=== PATIENT | male | born 1955 | race Caucasian/White ===

== ENCOUNTER 2017-04-03 17:22 | Observation (INO) | payer MEDICARE ==
--- NOTE | 2017-04-03 17:50 | ER Document Report ---
ED Medical Screen (RME) - General Chief Complaint: Leg Swelling Stated Complaint: LEG/FOOT PAIN Time Seen by Provider: 04/03/17 17:48 Notes: Patient complains of severe pain in the feet and legs with swelling. He is also been short of breath and chest pain and shoulder pain. TRAVEL OUTSIDE OF THE [place] IN LAST 30 DAYS: No - Related Data Allergies/Adverse Reactions: No Known Allergies Allergy (Verified 04/03/17 17:22) Past Medical History - Past Medical History Cardiac Medical History: Reports: Hx Atrial Fibrillation, Hx Heart Attack, Hx Hypertension Pulmonary Medical History: Reports: Hx COPD Denies: Hx Tuberculosis Endocrine Medical History: Reports: Hx Diabetes Mellitus Type 2 Psychiatric Medical History: Denies: Hx Depression Past Surgical History: Reports: Hx Appendectomy, Hx Cardiac Catheterization - Immunizations Hx Diphtheria, Pertussis, Tetanus Vaccination: Yes Physical Exam - Vital signs Vitals: Temp Pulse Resp BP Pulse Ox 98.5 F 89 18 143/88 H 96 04/03/17 17:40 04/03/17 17:40 04/03/17 17:40 04/03/17 17:40 04/03/17 17:40 Course - Vital Signs Vital signs: Temp Pulse Resp BP Pulse Ox 98.5 F 89 18 143/88 H 96 04/03/17 17:40 04/03/17 17:40 04/03/17 17:40 04/03/17 17:40 04/03/17 17:40
[2017-04-03 18:33] LABS: ABSOLUTE BASOPHILS # (AUTO) 0.1 10^3/uL (0.0-0.2); ABSOLUTE EOSINOPHILS # (AUTO) 0.2 10^3/uL (0.0-0.6); ABSOLUTE MONOCYTES (AUTO) 0.8 10^3/uL (0.1-1.4); BASOPHILS % (AUTO) 1.1 % (0-2); EOSINOPHILS % (AUTO) 3.4 % (0-6); HEMATOCRIT 50.8 % (37.9-51.0); HEMOGLOBIN 17.3 g/dL (13.5-17.0); LYMPHOCYTES % (AUTO) 32.5 % (13-45); MEAN CORPUSCULAR HEMOGLOBIN 28.9 pg (27.0-33.4); MEAN CORPUSCULAR VOLUME 85 fl (80-97); MONOCYTES % (AUTO) 13.9 % (3-13); PLATELET COUNT 178 10^3/uL (150-450); RED BLOOD COUNT 5.98 10^6/uL (4.35-5.55); RED CELL DISTRIBUTION WIDTH 14.1 % (11.5-14.0); SEGMENTED NEUTROPHILS % (AUTO) 49.1 % (42-78); TOTAL CELLS COUNTED % (AUTO) 100 %; WHITE BLOOD COUNT 6.1 10^3/uL (4.0-10.5)
--- NOTE | 2017-04-03 18:36 | RADIOLOGY REPORT (SQ) ---
EXAM DESCRIPTION: CHEST SINGLE VIEW COMPLETED DATE/TIME: 04/03/2017 6:12 pm REASON FOR STUDY: sob COMPARISON: None. EXAM PARAMETERS: NUMBER OF VIEWS: One view. TECHNIQUE: Single frontal radiographic view of the chest acquired. RADIATION DOSE: NA LIMITATIONS: None. FINDINGS: LUNGS AND PLEURA: No opacities, masses or pneumothorax. No pleural effusion. Minimal line ar density is again identified in the left lung base which could represent subsegmental atelectasis o r scarring MEDIASTINUM AND HILAR STRUCTURES: No masses. Contour normal. HEART AND VASCULAR STRUCTURES: Heart normal in size. Normal vasculature. BONES: Degenerative changes are again identified in the thoracic spine HARDWARE: None in the chest. OTHER: No other significant finding. IMPRESSION: No significant interval change. No acute findings. Other findings as noted above TECHNICAL DOCUMENTATION: JOB ID: [id number] [employer]- All Rights Reserved
[2017-04-03 18:43] LABS: ALANINE AMINOTRANSFERASE 65 U/L (21-72); ALBUMIN 4.4 g/dL (3.5-5.0); ALKALINE PHOSPHATASE 66 U/L (38-126); ANION GAP 10 (5-19); ASPARTATE AMINO TRANSFERASE 40 U/L (17-59); BILIRUBIN,DIRECT 0.4 mg/dL (0.0-0.4); BILIRUBIN,TOTAL 0.5 mg/dL (0.2-1.3); BLOOD UREA NITROGEN 16 mg/dL (7-20); CALCIUM 9.9 mg/dL (8.4-10.2); CARBON DIOXIDE 28 mmol/L (22-30); CHLORIDE 104 mmol/L (98-107); GLUCOSE 114 mg/dL (75-110); SODIUM 141.6 mmol/L (137-145); TOTAL PROTEIN 7.2 g/dL (6.3-8.2)
[2017-04-03 18:55] LABS: NT PRO BNP 389 pg/mL (5-900)
[2017-04-03 18:57] LABS: TROPONIN I < 0.012 ng/mL
--- NOTE | 2017-04-03 19:54 | ER Document Report ---
ED General - General Chief Complaint: Leg Swelling Stated Complaint: LEG/FOOT PAIN Time Seen by Provider: 04/03/17 17:48 Notes: 89-year-old male to the emergency department complaining of not feeling well. States that he hurts all over. States that the last time he felt this way he had a heart attack. Has noticed that he has some lower extremity edema as well. Does have a history of atrial fibrillation. Denies any chest pain at this time. Swelling seems to be getting worse in his legs and noticed some discoloration of his bilateral feet. TRAVEL OUTSIDE OF THE [place] IN LAST 30 DAYS: No - HPI Onset: Yesterday Onset/Duration: Gradual, Worse Severity: Moderate Pain Level: 3 Associated symptoms: Body/muscle aches - Related Data Allergies/Adverse Reactions: No Known Allergies Allergy (Verified 04/03/17 17:22) Past Medical History - General Information source: Patient - Social History Smoking Status: Current Every Day Smoker Chew tobacco use (# tins/day): No Frequency of alcohol use: None Drug Abuse: None Lives with: Spouse/Significant other Family History: Reviewed & Not Pertinent Patient has suicidal ideation: No Patient has homicidal ideation: No - Past Medical History Cardiac Medical History: Reports: Hx Atrial Fibrillation, Hx Heart Attack, Hx Hypertension Pulmonary Medical History: Reports: Hx COPD Denies: Hx Tuberculosis Endocrine Medical History: Reports: Hx Diabetes Mellitus Type 2 Renal/ Medical History: Denies: Hx Peritoneal Dialysis Psychiatric Medical History: Denies: Hx Depression Past Surgical History: Reports: Hx Appendectomy, Hx Cardiac Catheterization - Immunizations Hx Diphtheria, Pertussis, Tetanus Vaccination: Yes Hx Pneumococcal Vaccination: 07/22/12 Review of Systems - Review of Systems Constitutional: denies: Chills, Diaphoresis, Fever, Malaise, Weakness EENT: denies: Eye discharge, Blurred vision, Double vision, Throat swelling Cardiovascular: Palpitations, Heart racing, Dyspnea, Edema. denies: Chest pain , Syncope, Dizziness, Lightheaded Respiratory: denies: Cough, Hurts to breathe, Short of breath, Wheezing Gastrointestinal: denies: Abdominal pain, Diarrhea, Nausea, Vomiting Genitourinary: denies: Dysuria, Discharge, Flank pain, Urgency, Retention Musculoskeletal: denies: Back pain, Joint pain, Muscle pain, Muscle stiffness, Neck pain Skin: Lesions, Rash. denies: Change in color Hematologic/Lymphatic: Easy bruising. denies: Anemia, Blood clots, Easy bleeding Neurological/Psychological: denies: Confusion, Weakness, Numbness Physical Exam - Vital signs Vitals: Temp Pulse Resp BP Pulse Ox 98.5 F 89 18 143/88 H 96 04/03/17 17:40 04/03/17 17:40 04/03/17 17:40 04/03/17 17:40 04/03/17 17:40 Interpretation: Tachycardic - General General appearance: Appears well, Alert - HEENT Head: Normocephalic, Atraumatic Eyes: Normal Pupils: PERRL - Respiratory Respiratory status: No respiratory distress Chest status: Nontender Breath sounds: Normal Chest palpation: Normal - Cardiovascular Rhythm: Irregularly irregular, Tachycardia Heart sounds: Normal auscultation Murmur: No - Abdominal Inspection: Normal Distension: No distension Bowel sounds: Normal Tenderness: Nontender Organomegaly: No organomegaly - Back Back: Normal, Nontender - Extremities General upper extremity: Normal inspection, Nontender, Normal color, Normal ROM , Normal temperature General lower extremity: Normal inspection, Nontender, Edema, Normal color, Normal ROM, Normal temperature, Normal weight bearing. No: Nabor's sign - Neurological Neuro grossly intact: Yes Cognition: Normal Orientation: AAOx4 [place] Coma Scale Eye Opening: Spontaneous [place] Coma Scale Verbal: Oriented [place] Coma Scale Motor: Obeys Commands [place] Coma Scale Total: 15 Speech: Normal Motor strength normal: LUE, RUE, LLE, RLE Sensory: Normal - Psychological Associated symptoms: Normal affect, Normal mood - Skin Skin Temperature: Warm Skin Moisture: Dry Skin Color: Normal Course - Re-evaluation Re-evalutation: 04/03/17 20:50 Patient has atrial fibrillation with a rapid ventricular response with a heart rate of 121. Will need to get his rate controlled. This could be causing his issues. Will consult with hospitalist for admission at this time. 04/03/17 20:50 Chest X-Ray 04/03/17 17:50 IMPRESSION: No significant interval change. No acute findings. Other findings as noted above Laboratory 04/03/17 04/03/17 04/03/17 18:05 18:05 18:05 WBC 6.1 RBC 5.98 H Hgb 17.3 H Hct 50.8 MCV 85 MCH 28.9 MCHC 34.0 RDW 14.1 H Plt Count 178 Seg Neutrophils % 49.1 Lymphocytes % 32.5 Monocytes % 13.9 H Eosinophils % 3.4 Basophils % 1.1 Absolute Neutrophils 3.0 Absolute Lymphocytes 2.0 Absolute Monocytes 0.8 Absolute Eosinophils 0.2 Absolute Basophils 0.1 Sodium 141.6 Potassium 5.0 Chloride 104 Carbon Dioxide 28 Anion Gap 10 BUN 16 Creatinine 1.09 Est GFR ( Amer) > 60 Est GFR (Non-Af Amer) > 60 Glucose 114 H Calcium 9.9 Total Bilirubin 0.5 Direct Bilirubin 0.4 Neonat Total Bilirubin Not Reportable Neonat Direct Bilirubin Not Reportable Neonat Indirect Bili Not Reportable AST 40 ALT 65 Alkaline Phosphatase 66 Troponin I < 0.012 NT-Pro-B Natriuret Pep 389 Total Protein 7.2 Albumin 4.4 Urine Color Urine Appearance Urine pH Ur Specific [place] Urine Protein Urine Glucose (UA) Urine Ketones Urine Blood Urine Nitrite Urine Bilirubin Urine Urobilinogen Ur Leukocyte Esterase Urine WBC (Auto) Urine RBC (Auto) U Hyaline Cast (Auto) Urine Bacteria (Auto) Squamous Epi Cells Auto Urine Mucus (Auto) Urine Ascorbic Acid 04/03/17 19:45 WBC RBC Hgb Hct MCV MCH MCHC RDW Plt Count Seg Neutrophils % Lymphocytes % Monocytes % Eosinophils % Basophils % Absolute Neutrophils Absolute Lymphocytes Absolute Monocytes Absolute Eosinophils Absolute Basophils Sodium Potassium Chloride Carbon Dioxide Anion Gap BUN Creatinine Est GFR ( Amer) Est GFR (Non-Af Amer) Glucose Calcium Total Bilirubin Direct Bilirubin Neonat Total Bilirubin Neonat Direct Bilirubin Neonat Indirect Bili AST ALT Alkaline Phosphatase Troponin I NT-Pro-B Natriuret Pep Total Protein Albumin Urine Color YELLOW Urine Appearance SLIGHTLY-CLOUDY Urine pH 5.0 Ur Specific [place] 1.026 Urine Protein NEGATIVE Urine Glucose (UA) NEGATIVE Urine Ketones NEGATIVE Urine Blood NEGATIVE Urine Nitrite NEGATIVE Urine Bilirubin NEGATIVE Urine Urobilinogen NEGATIVE Ur Leukocyte Esterase NEGATIVE Urine WBC (Auto) 1 Urine RBC (Auto) 1 U Hyaline Cast (Auto) 1 Urine Bacteria (Auto) TRACE Squamous Epi Cells Auto <1 Urine Mucus (Auto) MOD Urine Ascorbic Acid NEGATIVE - Vital Signs Vital signs: Temp Pulse Resp BP Pulse Ox 98.5 F 89 26 H 143/88 H 95 04/03/17 17:40 04/03/17 17:40 04/03/17 19:54 04/03/17 17:40 04/03/17 19:54 - Laboratory Result Diagrams: 04/03/17 18:05 04/03/17 18:05 Laboratory results interpreted by me: 04/03/17 04/03/17 18:05 18:05 RBC 5.98 H Hgb 17.3 H RDW 14.1 H Monocytes % 13.9 H Glucose 114 H - EKG Interpretation by In EKG shows normal: Intervals, QRS Complexes, ST-T Waves Rate: Tachycardia Rhythm: A.Fib Discharge - Discharge Clinical Impression: Atrial fibrillation with rapid ventricular response Disposition: ADMITTED OBSERVATION Admitting Provider: Hospitalist - Dr. Del Toro Unit Admitted: Telemetry
[2017-04-03 20:07] LABS: APPEARANCE,URINE SLIGHTLY-CLOUDY; BILIRUBIN,URINE NEGATIVE (NEGATIVE); COLOR,URINE YELLOW; GLUCOSE, URINE NEGATIVE (NEGATIVE); KETONES,URINE NEGATIVE (NEGATIVE); LEUKOCYTE ESTERASE,URINE NEGATIVE (NEGATIVE); NITRITE,URINE NEGATIVE (NEGATIVE); PROTEIN,URINE NEGATIVE (NEGATIVE); URINE SPECIFIC GRAVITY 1.026; UROBILINOGEN,URINE NEGATIVE mg/dL (<2.0)
[2017-04-03] MEDS ORDERED: METOPROLOL TARTRATE 25 MG TABLET PO ONE (20:51)
[2017-04-03 21:29] LABS: INTERNATIONAL RATION (INR) 0.96; PROTHROMBIN TIME 13.4 SEC (11.4-15.4)
[2017-04-03 21:30] LABS: PARTIAL THROMBOPLASTIN TIME 34.2 SEC (23.5-35.8)
[2017-04-03] MEDS ORDERED: ZOLPIDEM TARTRATE 5 MG TABLET PO PRN (21:49)
[2017-04-03] MEDS ORDERED: DEXTROSE 50%-WATER 25 GM/50 ML DISP.SYRIN IV PRN ×2 (21:49)
[2017-04-03] MEDS ORDERED: GLUCAGON,HUMAN RECOMB 1 MG INJ IM PRN (21:49)
[2017-04-03] MEDS ORDERED: ACETAMINOPHEN 325 MG TABLET PO PRN (21:49)
[2017-04-03] MEDS ORDERED: INSULIN REG, HUMAN 100 UNIT/ML 3 ML VIAL (PYX) SUBCUT PRN (21:49)
[2017-04-03] MEDS ORDERED: ALBUTEROL SULFATE 0.083% NEB 2.5 MG/3 ML AMPUL NEB PRN (21:49)
[2017-04-03] MEDS ORDERED: DEXTROSE 40% GEL 15 GM TUBE PO PRN ×2 (21:49)
[2017-04-03] MEDS ORDERED: ONDANSETRON HCL INJ/PF 4 MG/2 ML SDV IV PRN (21:49)
[2017-04-03] MEDS: APIXABAN 5 MG TABLET PO SCH (22:02)
[2017-04-03] MEDS: ATORVASTATIN CALCIUM 40 MG TABLET PO SCH (22:03)
[2017-04-03] MEDS: GABAPENTIN 300 MG CAPSULE PO SCH (22:03)
[2017-04-03] MEDS: METOPROLOL TARTRATE 25 MG TABLET PO SCH (22:03)
[2017-04-03] MEDS: DILTIAZEM HCL 90 MG TABLET PO SCH (22:08)
--- NOTE | 2017-04-03 22:23 | PDOC H&P ---
History of Present Illness Admission Date/PCP: 04/03/17 21:04 KEDAR SINGH MD Patient complains of: Generalized aches and pains History of Present Illness: KARLA GARNICA is a 61 year old male with long-standing history of diabetic neuropathy. His relates that he snores, stops breathing in his sleep, and falls asleep during the daytime. For the last several days in addition he has been having diffuse aches and pains. He has developed rubor of the feet and edema as well. He presents to the emergency room with rapid atrial fibrillation which has responded to additional beta blockers. He is admitted to our service for further management of his peripheral vascular disease. Past Medical History Cardiac Medical History: Reports: Atrial Fibrillation, Myocardial Infarction, Hypertension Pulmonary Medical History: Reports: Chronic Obstructive Pulmonary Disease (COPD) Denies: Tuberculosis Endocrine Medical History: Reports: Diabetes Mellitus Type 2, Obesity Psychiatric Medical History: Denies: Depression Past Surgical History Past Surgical History: Reports: Appendectomy, Cardiac Catheterization Social History Information Source: Patient Lives with: Spouse/Significant other Smoking Status: Current Every Day Smoker Cigarettes Packs Per Day: 0.5 Frequency of Alcohol Use: Social Hx Recreational Drug Use: No Drugs: None Hx Prescription Drug Abuse: No - Advance Directive Resuscitation Status: Full Code Family History Family History: Reviewed & Not Pertinent Parental Family History Reviewed: Yes Children Family History Reviewed: Yes Sibling(s) Family History Reviewed.: Yes Medication/Allergy Home Medications: Apixaban [Eliquis 5 mg Tablet] 5 mg PO Q12 04/03/17 Atorvastatin Calcium [Lipitor 40 mg Tablet] 40 mg PO QHS 04/03/17 Cyanocobalamin (Vitamin B-12) [Vitamin B-12 SL 2500 mcg Tablet] 2,500 mcg SL DAILY 04/03/17 Diltiazem HCl [Cardizem 90 mg Tablet] 90 mg PO Q8 04/03/17 Gabapentin [Neurontin 300 mg Capsule] 300 mg PO Q8 04/03/17 Metformin HCl [Metformin HCl ER] 2,000 mg PO QPM 04/03/17 Metoprolol Tartrate [Lopressor 25 mg Tablet] 25 mg PO Q8 04/03/17 Allergies/Adverse Reactions: No Known Allergies Allergy (Verified 04/03/17 17:22) Review of Systems Constitutional: PRESENT: fatigue. ABSENT: fever(s), weakness Eyes: ABSENT: visual disturbances Ears: ABSENT: hearing changes Nose, Mouth, and Throat: ABSENT: mouth pain, sore throat Cardiovascular: PRESENT: edema. ABSENT: chest pain, dyspnea on exertion, palpitations Respiratory: ABSENT: cough, dyspnea, hemoptysis Gastrointestinal: PRESENT: abdominal pain. ABSENT: constipation, diarrhea, heartburn, nausea, vomiting Genitourinary: ABSENT: difficulty urinating, dysuria, hematuria Musculoskeletal: PRESENT: back pain. ABSENT: joint swelling Integumentary: PRESENT: erythema, rash. ABSENT: diaphoresis Neurological: PRESENT: numbness, paresthesias Psychiatric: ABSENT: depression, suicidal ideation Endocrine: PRESENT: other - diabetes Physical Exam Vital Signs: Temp Pulse Resp BP Pulse Ox 98.2 F 89 21 H 130/111 H 94 04/03/17 21:54 04/03/17 17:40 04/03/17 21:34 04/03/17 21:35 04/03/17 21:35 General appearance: PRESENT: no acute distress, cooperative, obese, well- developed Head exam: PRESENT: atraumatic, normocephalic Eye exam: PRESENT: EOMI, nystagmus, PERRLA Ear exam: PRESENT: normal external ear exam Neck exam: ABSENT: carotid bruit, JVD, meningismus Respiratory exam: PRESENT: clear to auscultation petros, symmetrical, unlabored. ABSENT: accessory muscle use Cardiovascular exam: PRESENT: irregular rhythm. ABSENT: diastolic murmur, rubs , systolic murmur Pulses: PRESENT: other - Decreased dorsalis pedis and absent posterior tibialis bilaterally Vascular exam: PRESENT: other - Poor capillary refill GI/Abdominal exam: PRESENT: normal bowel sounds, soft. ABSENT: guarding, organolmegaly Rectal exam: PRESENT: deferred Extremities exam: PRESENT: pedal edema Musculoskeletal exam: PRESENT: normal inspection Neurological exam: PRESENT: alert, awake, oriented to person, oriented to place , oriented to time, oriented to situation Psychiatric exam: PRESENT: appropriate affect, normal mood Skin exam: PRESENT: dry, intact, warm, other - Stasis dermatitis changes in both lower extremities. ABSENT: cyanosis, rash Results Laboratory Results: 04/03/17 04/03/17 04/03/17 18:05 18:05 18:05 WBC 6.1 RBC 5.98 H Hgb 17.3 H Plt Count 178 Monocytes % 13.9 H PT INR APTT Sodium 141.6 Potassium 5.0 Chloride 104 Carbon Dioxide 28 Anion Gap 10 BUN 16 Creatinine 1.09 Glucose 114 H Troponin I < 0.012 NT-Pro-B Natriuret Pep 389 Total Protein 7.2 Albumin 4.4 Urine Glucose (UA) Ur Leukocyte Esterase 04/03/17 04/03/17 18:05 19:45 WBC RBC Hgb Plt Count Monocytes % PT 13.4 INR 0.96 APTT 34.2 Sodium Potassium Chloride Carbon Dioxide Anion Gap BUN Creatinine Glucose Troponin I NT-Pro-B Natriuret Pep Total Protein Albumin Urine Glucose (UA) NEGATIVE Ur Leukocyte Esterase NEGATIVE EKG Comments: Atrial fibrillation Impressions: Chest X-Ray 04/03/17 17:50 IMPRESSION: No significant interval change. No acute findings. Other findings as noted above Assessment & Plan - Diagnosis (1) Flu syndrome Is this a current diagnosis for this admission?: Yes (2) PVD (pulmonary valve disease) Is this a current diagnosis for this admission?: Yes (3) Neuropathy associated with endocrine disorder Is this a current diagnosis for this admission?: Yes (4) Tobacco abuse Is this a current diagnosis for this admission?: Yes (5) Tobacco abuse counseling Is this a current diagnosis for this admission?: Yes (6) COPD (chronic obstructive pulmonary disease) with emphysema Qualifiers: Emphysema type: unspecified Qualified Code(s): J43.9 - Emphysema, unspecified Is this a current diagnosis for this admission?: Yes (7) HTN (hypertension) Qualifiers: Hypertension type: essential hypertension Qualified Code(s): I10 - Essential (primary) hypertension Is this a current diagnosis for this admission?: Yes (8) Atrial fibrillation with rapid ventricular response Is this a current diagnosis for this admission?: Yes (9) DM2 (diabetes mellitus, type 2) Qualifiers: Diabetes mellitus complication status: with circulatory complication Diabetes mellitus complication detail: with peripheral angiopathy without gangrene Diabetes mellitus exterminator termite insulin use: without exterminator termite use Qualified Code(s): E11.51 - Type 2 diabetes mellitus with diabetic peripheral angiopathy without gangrene Is this a current diagnosis for this admission?: Yes - Time Time Spent: 30 to 50 Minutes - Plan Summary Plan Summary: Patient is exhibiting evidence of an acute viral infection. He has elevated monocytosis and myalgias. In addition he has probable sleep apnea and should have a sleep study following discharge. He has known diabetic neuropathy. And his exam is suggestive of peripheral vascular disease. His atrial fibrillation has been controlled with an increase in his home medication. We will request noninvasive vascular studies. He will have serial enzymes to rule out an acute event that precipitated his rapid ventricular response. He will not require DVT prophylaxis as he is on therapeutic anticoagulation. He has been encouraged to stop smoking. Patient will be admitted to observation status
[2017-04-03] MEDS ORDERED: DOCUSATE SODIUM 100 MG CAPSULE PO ONE (23:00)
[2017-04-03] MEDS: FAMOTIDINE 20 MG TABLET PO SCH (23:03)
[2017-04-03] MEDS: IPRATROPIUM/ALBUTEROL 0.5-2.5 MG/3 ML AMPUL NEB SCH (23:31)
[2017-04-04 00:30] LABS: CREATINE KINASE MB 1.58 ng/mL (<4.55)
[2017-04-04 00:39] LABS: TROPONIN I < 0.012 ng/mL
[2017-04-04 05:18] LABS: HEMATOCRIT 47.2 % (37.9-51.0); MEAN CORPUSCULAR VOLUME 85 fl (80-97); PLATELET COUNT 166 10^3/uL (150-450); RED BLOOD COUNT 5.54 10^6/uL (4.35-5.55); RED CELL DISTRIBUTION WIDTH 14.4 % (11.5-14.0); WHITE BLOOD COUNT 6.1 10^3/uL (4.0-10.5)
[2017-04-04] MEDS: GABAPENTIN 300 MG CAPSULE PO SCH ×3 (05:26→22:19)
[2017-04-04] MEDS: DILTIAZEM HCL 90 MG TABLET PO SCH ×3 (05:27→22:19)
[2017-04-04] MEDS: METOPROLOL TARTRATE 25 MG TABLET PO SCH (05:27)
[2017-04-04 05:51] LABS: ANION GAP 9 (5-19); BLOOD UREA NITROGEN 16 mg/dL (7-20); CALCIUM 9.6 mg/dL (8.4-10.2); CARBON DIOXIDE 27 mmol/L (22-30); CHLORIDE 106 mmol/L (98-107); CHOLESTEROL 103.27 mg/dL (0-200); CREATINE KINASE 96 U/L (55-170); GLUCOSE 120 mg/dL (75-110); POTASSIUM 4.6 mmol/L (3.6-5.0); SODIUM 142.1 mmol/L (137-145); TRIGLYCERIDES 324 mg/dL (<150)
[2017-04-04 06:02] LABS: DIRECT LDL 46 mg/dL (<100)
[2017-04-04 06:06] LABS: CREATINE KINASE MB 1.38 ng/mL (<4.55)
[2017-04-04 06:13] LABS: TROPONIN I < 0.012 ng/mL; VLDL CHOLESTEROL 64.8 mg/dL (10-31)
[2017-04-04] MEDS: IPRATROPIUM/ALBUTEROL 0.5-2.5 MG/3 ML AMPUL NEB SCH (09:19)
[2017-04-04] MEDS ORDERED: (PENDING PHARMACY ID) (Cyanocobalamin (Vitamin B-12) [Vitamin B-12 Sl 2500 Mcg Tablet] 2,5 SL SCH (10:00)
[2017-04-04] MEDS ORDERED: DOCUSATE SODIUM 100 MG CAPSULE PO SCH (10:00)
[2017-04-04] MEDS ORDERED: METOPROLOL SUCCINATE 50 MG TAB.SR.24H PO SCH (10:00)
[2017-04-04] MEDS ORDERED: CYANOCOBALAMIN (VITAMIN B-12) 1,000 MCG TABLET PO SCH (10:00)
--- NOTE | 2017-04-04 10:26 | RADIOLOGY REPORT (SQ) ---
EXAM DESCRIPTION: ARTERIAL LOWER EXTREM BILAT COMPLETED DATE/TIME: 04/04/2017 10:10 am REASON FOR STUDY: pvd COMPARISON: None. TECHNIQUE: Dynamic and static bee scale and color images acquired of the lower extremity arteries. Additional selected spectral images recorded. ABIs recorded. LIMITATIONS: None. FINDINGS: RIGHT LEG: ABIS: Normal, over 1.0. INFLOW ARTERIES: Normal, no obstruction evident. FEMORAL ARTERIES:Multiphasic waveforms. Normal, no velocity elevation to suggest focal stenosis. Norm al color Doppler evaluation. No aneurysm. POPLITEAL ARTERY:Multiphasic waveforms. Normal, no velocity elevation to suggest focal stenosis. Norm al color Doppler evaluation. No aneurysm. PATENT TIBIOPERONEAL TRUNK AND 3 VESSEL RUNOFF: Yes, normal vessels. TBI: Not performed. OTHER: No other significant finding. LEFT LEG: ABIS: Normal, over 1.0. INFLOW ARTERIES: Normal, no obstruction evident. FEMORAL ARTERIES:Multiphasic waveforms. Normal, no velocity elevation to suggest focal stenosis. Norm al color Doppler evaluation. No aneurysm. POPLITEAL ARTERY:Multiphasic waveforms. Normal, no velocity elevation to suggest focal stenosis. Norm al color Doppler evaluation. No aneurysm. PATENT TIBIOPERONEAL TRUNK AND 3 VESSEL RUNOFF: Yes, normal vessels. TBI: Not performed. OTHER: No other significant finding. IMPRESSION: NORMAL BILATERAL LOWER EXTREMITY ARTERIAL DOPPLER WITH ABIs. COMMENT: [facility] NORMAL: Greater than 1.0 MINIMAL DISEASE: 0.9 to 1.0 CLAUDICATION: 0.5 to 0.9 SEVERE ARTERIAL DISEASE: Less than 0.5 [facility] NORMAL: Greater than 1.0 (1.2 If Heavy Calcifications) NORMAL TO MILD ISCHEMIA: 0.8 to 1.0 MODERATE ISCHEMIA: 0.4 to 0.8 SEVERE ISCHEMIA: Less than 0.4 TECHNICAL DOCUMENTATION: JOB ID: [id number] [employer]- All Rights Reserved
[2017-04-04] MEDS: METFORMIN HCL 500 MG TABLET PO SCH ×2 (11:47→17:16)
[2017-04-04] MEDS: FAMOTIDINE 20 MG TABLET PO SCH ×2 (11:48→22:19)
[2017-04-04] MEDS: APIXABAN 5 MG TABLET PO SCH ×2 (11:49→22:19)
--- NOTE | 2017-04-04 12:00 | EKG REPORT ---
SEVERITY:- ABNORMAL ECG - ATRIAL FIBRILLATION, V-RATE 91-142 BORDERLINE PROLONGED QT INTERVAL : Confirmed by: Moriah Yung 04-Apr-2017 11:59:07
[2017-04-04 12:21] LABS: TROPONIN I < 0.012 ng/mL
--- NOTE | 2017-04-04 12:40 | RADIOLOGY REPORT (SQ) ---
EXAM DESCRIPTION: L SPINE WHOLE COMPLETED DATE/TIME: 04/04/2017 10:56 am REASON FOR STUDY: Lumbar back and hip pain COMPARISON: None. NUMBER OF VIEWS: Five views including obliques. TECHNIQUE: AP, lateral, oblique, and sacral radiographic images acquired of the lumbar spine. LIMITATIONS: None. FINDINGS: MINERALIZATION: Normal. SEGMENTATION: Normal. No transitional anatomy. ALIGNMENT: Normal. VERTEBRAE: Maintained height. No fracture or worrisome bone lesion. DISCS: There is decrease in the L4-L5 and to a lesser extent the L3-L4 disc space heights with associ ated osteophytic lipping. A large osteophyte is identified at the L2-L3 level on the left. POSTERIOR ELEMENTS: Pedicles and facets are intact. No pars defect or posterior arch defects. HARDWARE: None in the spine. PARASPINAL SOFT TISSUES: Normal. PELVIS: Intact as visualized. No fractures or worrisome bone lesions. SI joints intact. OTHER: No other significant finding. IMPRESSION: Degenerative changes as noted above TECHNICAL DOCUMENTATION: JOB ID: [id number] [employer]- All Rights Reserved
--- NOTE | 2017-04-04 12:59 | RADIOLOGY REPORT (SQ) ---
EXAM DESCRIPTION: PELVIS W/OBLIQUES COMPLETED DATE/TIME: 04/04/2017 10:56 am REASON FOR STUDY: Lumbar back and hip pain COMPARISON: None. NUMBER OF VIEWS: Two views TECHNIQUE: AP pelvis and additional oblique views of the pelvis and hips. LIMITATIONS: None. FINDINGS: MINERALIZATION: Normal. HIPS: No acute fracture or dislocation. Intramedullary calcific density is identified at the level o f the proximal femoral diaphysis on the right with the differential possibilities including a bone in farct or enchondroma or other chondroid neoplasm. If further workup is deemed clinically warranted I would recommend MRI PELVIS AND SACRUM: No acute fracture or dislocation. No worrisome bone lesions. PUBIS AND ISCHIUM: No acute fracture. LOWER LUMBAR SPINE: See results under lumbar spine series SOFT TISSUES: No findings. OTHER: No other significant finding. IMPRESSION: No acute fracture or dislocation. No significant degenerative changes in the hip articu lations. Intramedullary calcific density at the level of the proximal femoral diaphysis on the right as noted above. Differential possibilities as noted above. If further workup is deemed clinically warranted I would recommend MRI. Other findings as noted above TECHNICAL DOCUMENTATION: JOB ID: [id number]- All Rights Reserved
[2017-04-04] MEDS ORDERED: INFLUENZA ADLT QUAD (36MOS+) 2017-18 VAC 0.5 ML SYR IM PRN (13:17)
--- NOTE | 2017-04-04 13:54 | PROGRESS NOTE E ---
Progress Note NAME: KARLA GARNICA : 1955 AGE: 61Y DATE: 04/04/2017 ROOM: 533 SUBJECTIVE: The patient was seen earlier today on rounds. The patient denies any nausea, vomiting, or diarrhea. No shortness of breath, dizziness, or chest pain. No heart palpitations. No fevers or chills. The patient does complain of persistent lower back pain, and the patient does not voice any other concerns at this time. REVIEW OF SYSTEMS: Rest of the review of systems negative. MEDICATIONS: Have been reviewed. OBJECTIVE: GENERAL: The patient is a 61-year-old male who is awake, alert, and oriented to person, place, time, and situation. He is verbal, conversational, and does not appear to be in any acute distress. VITAL SIGNS: Temperature 98.2, pulse 77, respirations 17, blood pressure 123/65, oxygen saturation is 97% on 1 L nasal cannula. SKIN: Warm and dry. No rash. He is not diaphoretic. HEENT: Pupils equal, round, reactive to light and accommodation. Conjunctivae are pink. There is no evidence of JVP. CARDIOVASCULAR: Heart is irregularly irregular. There is no rub. CHEST: Clear, symmetrical, unlabored. ABDOMEN: Soft, nontender, nondistended. BACK: There is no CVA tenderness or sacral edema. EXTREMITIES: No clubbing, cyanosis, or edema. PSYCHIATRIC: Appropriate affect. Pleasant mood. DIAGNOSTICS: Lab values are as follow: Hematology obtained on 04/04/2017: WBCs are 6.1, hemoglobin is 16.0, hematocrit is 47.2, platelet count is 166,000. Chemistry obtained on 04/04/2017: Sodium is 142, potassium 4.6, chloride is 106, carbon dioxide 27, BUN 16, creatinine is 0.06, glucose 120, calcium is 9.6, CK is 96. IMPRESSION AND PLAN: 1. LOWER BACK PAIN. This does appear to be an acute onset. Will send the patient for plain films and then further evaluation to follow. The patient does have some symptoms of radiculopathy but no evidence of myelopathy at this time. 2. ATRIAL FIBRILLATION WITH RAPID VENTRICULAR RESPONSE. The patient is now much better rate controlled. Will continue the patient's Cardizem as well as beta calista but increase the patient's home dosage for optimal control. 3. DIABETES MELLITUS TYPE 2. The patient's blood sugars have been in an acceptable range. Appears to have good glycemic control at 6.5. Continue metformin. 4. HYPERLIPIDEMIA. Will continue statin. 5. PERIPHERAL NEUROPATHY. Will continue the patient's home medications. 6. TOBACCO DEPENDENCY CONTINUOUS. Spent 3 minutes discussing smoking cessation education. The patient declines any pharmacological intervention at this time; however, will continue a p.r.n. nicotine patch. DISPOSITION: The patient is a FULL CODE. Pending patient's symptomatology and diagnostic findings, will reevaluate in the a.m. Time spent on this followup including assessment, plan, physical examination, patient education, and review of records is 25 minutes. DICTATING PHYSICIAN: JUSTEN RODRÍGUEZ NP [id number] PHY#: [id number] [id number] JOB#: [id number] ACCT: [id number] cc: >
[2017-04-04] MEDS ORDERED: (PENDING PHARMACY ID) (Metformin Hcl [Metformin Hcl Er] 2,000 MG) PO SCH (18:00)
[2017-04-04] MEDS: ATORVASTATIN CALCIUM 40 MG TABLET PO SCH (22:19)
[2017-04-05] MEDS: DILTIAZEM HCL 90 MG TABLET PO SCH (05:48)
[2017-04-05] MEDS: GABAPENTIN 300 MG CAPSULE PO SCH (05:48)
--- NOTE | 2017-04-05 07:05 | PDOC DISCHARGE SUMMARY ---
General - Admit/Disc Date/PCP Admission Date/Primary Care Provider: 04/03/17 21:04 KEDAR SINGH MD Discharge Date: 04/05/17 - Discharge Diagnosis (1) Atrial fibrillation with rapid ventricular response Is this a current diagnosis for this admission?: Yes (2) COPD (chronic obstructive pulmonary disease) with emphysema Is this a current diagnosis for this admission?: Yes (3) Type 2 diabetes mellitus with diabetic polyneuropathy Is this a current diagnosis for this admission?: Yes (4) Vitamin B12 deficiency Is this a current diagnosis for this admission?: Yes - Additional Information Resuscitation Status: Full Code Discharge Diet: Diabetic Discharge Activity: Activity As Tolerated Prescriptions: Metoprolol Succinate [Toprol Xl] 100 mg PO DAILY #90 tab.er.24h Home Medications: Apixaban [Eliquis 5 mg Tablet] 5 mg PO Q12 04/03/17 Atorvastatin Calcium [Lipitor 40 mg Tablet] 40 mg PO QHS 04/03/17 Cyanocobalamin (Vitamin B-12) [Vitamin B-12 SL 2500 mcg Tablet] 2,500 mcg SL DAILY 04/03/17 Diltiazem HCl [Cardizem 90 mg Tablet] 90 mg PO Q8 04/03/17 Gabapentin [Neurontin 300 mg Capsule] 300 mg PO Q8 04/03/17 Metformin HCl [Metformin HCl ER] 2,000 mg PO QPM 04/03/17 Albuterol Sulfate [Ventolin Hfa] 1 - 2 puff IH Q4 PRN 04/05/17 Metoprolol Succinate [Toprol Xl] 100 mg PO DAILY #90 tab.er.24h 04/05/17 History of Present Illness Patient complains of: feet burn and pain from back to feet History of Present Illness: KARLA GARNICA is a 61 year old male with diabetic neuropathy on gabapentin and 5 days of low back pain radiating to feet. Feet had freckels and few pink macules. Hospital Course Hospital Course: Rate was controlled by increase in metoprolol from 75 to 100mg a day. Now SLR is negative but hips are tender to rotation like symptom. He has not needed sliding scale insulin. Physical Exam Vital Signs: Temp Pulse Resp BP Pulse Ox 98.0 F 65 16 109/73 95 04/05/17 03:00 04/05/17 03:00 04/05/17 03:00 04/05/17 03:00 04/05/17 03:00 Intake & Output 04/03/17 04/04/17 04/05/17 07:59 07:59 07:59 Intake Total 696 Output Total 600 Balance 96 Weight 304 lb 10.861 oz General appearance: PRESENT: no acute distress Respiratory exam: PRESENT: clear to auscultation petros Cardiovascular exam: PRESENT: irregular rhythm. ABSENT: diastolic murmur, systolic murmur GI/Abdominal exam: ABSENT: mass, organolmegaly, tenderness Extremities exam: ABSENT: pedal edema Neurological exam: PRESENT: oriented to situation Psychiatric exam: PRESENT: appropriate affect Results Laboratory Results: 04/04/17 05:05 04/04/17 05:05 Labs- Last Values WBC 6.1 10^3/uL (4.0-10.5) 04/04/17 05:05 RBC 5.54 10^6/uL (4.35-5.55) 04/04/17 05:05 Hgb 16.0 g/dL (13.5-17.0) 04/04/17 05:05 Hct 47.2 % (37.9-51.0) 04/04/17 05:05 MCV 85 fl (80-97) 04/04/17 05:05 MCH 29.0 pg (27.0-33.4) 04/04/17 05:05 MCHC 34.0 g/dL (32.0-36.0) 04/04/17 05:05 RDW 14.4 % (11.5-14.0) H 04/04/17 05:05 Plt Count 166 10^3/uL (150-450) 04/04/17 05:05 Seg Neutrophils % 49.1 % (42-78) 04/03/17 18:05 Lymphocytes % 32.5 % (13-45) 04/03/17 18:05 Monocytes % 13.9 % (3-13) H 04/03/17 18:05 Eosinophils % 3.4 % (0-6) 04/03/17 18:05 Basophils % 1.1 % (0-2) 04/03/17 18:05 Absolute Neutrophils 3.0 10^3/uL (1.7-8.2) 04/03/17 18:05 Absolute Lymphocytes 2.0 10^3/uL (0.5-4.7) 04/03/17 18:05 Absolute Monocytes 0.8 10^3/uL (0.1-1.4) 04/03/17 18:05 Absolute Eosinophils 0.2 10^3/uL (0.0-0.6) 04/03/17 18:05 Absolute Basophils 0.1 10^3/uL (0.0-0.2) 04/03/17 18:05 PT 13.4 SEC (11.4-15.4) 04/03/17 18:05 INR 0.96 04/03/17 18:05 APTT 34.2 SEC (23.5-35.8) 04/03/17 18:05 Sodium 142.1 mmol/L (137-145) 04/04/17 05:05 Potassium 4.6 mmol/L (3.6-5.0) 04/04/17 05:05 Chloride 106 mmol/L (98-107) 04/04/17 05:05 Carbon Dioxide 27 mmol/L (22-30) 04/04/17 05:05 Anion Gap 9 (5-19) 04/04/17 05:05 BUN 16 mg/dL (7-20) 04/04/17 05:05 Creatinine 1.06 mg/dL (0.52-1.25) 04/04/17 05:05 Est GFR ( Amer) > 60 (>60) 04/04/17 05:05 Est GFR (Non-Af Amer) > 60 (>60) 04/04/17 05:05 Glucose 120 mg/dL (75-110) H 04/04/17 05:05 POC Glucose 143 mg/dL (70-110) H 04/04/17 22:20 Hemoglobin A1c % 6.5 % (4.7-6.0) H 04/04/17 05:05 Calcium 9.6 mg/dL (8.4-10.2) 04/04/17 05:05 Total Bilirubin 0.5 mg/dL (0.2-1.3) 04/03/17 18:05 Direct Bilirubin 0.4 mg/dL (0.0-0.4) 04/03/17 18:05 Neonat Total Bilirubin Not Reportable 04/03/17 18:05 Neonat Direct Bilirubin Not Reportable 04/03/17 18:05 Neonat Indirect Bili Not Reportable 04/03/17 18:05 AST 40 U/L (17-59) 04/03/17 18:05 ALT 65 U/L (21-72) 04/03/17 18:05 Alkaline Phosphatase 66 U/L (38-126) 04/03/17 18:05 Creatine Kinase 113 U/L (55-170) 04/04/17 11:33 CK-MB (CK-2) 1.70 ng/mL (<4.55) 04/04/17 10:33 Troponin I < 0.012 ng/mL 04/04/17 10:33 NT-Pro-B Natriuret Pep 389 pg/mL (5-900) 04/03/17 18:05 Total Protein 7.2 g/dL (6.3-8.2) 04/03/17 18:05 Albumin 4.4 g/dL (3.5-5.0) 04/03/17 18:05 Triglycerides 324 mg/dL (<150) H 04/04/17 05:05 Cholesterol 103.27 mg/dL (0-200) 04/04/17 05:05 LDL Cholesterol Direct 46 mg/dL (<100) 04/04/17 05:05 VLDL Cholesterol 64.8 mg/dL (10-31) H 04/04/17 05:05 HDL Cholesterol 24 mg/dL (>40) L 04/04/17 05:05 Urine Color YELLOW 04/03/17 19:45 Urine Appearance SLIGHTLY-CLOUDY 04/03/17 19:45 Urine pH 5.0 (5.0-9.0) 04/03/17 19:45 Ur Specific [place] 1.026 04/03/17 19:45 Urine Protein NEGATIVE mg/dL (NEGATIVE) 04/03/17 19:45 Urine Glucose (UA) NEGATIVE mg/dL (NEGATIVE) 04/03/17 19:45 Urine Ketones NEGATIVE mg/dL (NEGATIVE) 04/03/17 19:45 Urine Blood NEGATIVE (NEGATIVE) 04/03/17 19:45 Urine Nitrite NEGATIVE (NEGATIVE) 04/03/17 19:45 Urine Bilirubin NEGATIVE (NEGATIVE) 04/03/17 19:45 Urine Urobilinogen NEGATIVE mg/dL (<2.0) 04/03/17 19:45 Ur Leukocyte Esterase NEGATIVE (NEGATIVE) 04/03/17 19:45 Urine WBC (Auto) 1 /HPF 04/03/17 19:45 Urine RBC (Auto) 1 /HPF 04/03/17 19:45 U Hyaline Cast (Auto) 1 /LPF 04/03/17 19:45 Urine Bacteria (Auto) TRACE /HPF 04/03/17 19:45 Squamous Epi Cells Auto <1 /HPF 04/03/17 19:45 Urine Mucus (Auto) MOD /LPF 04/03/17 19:45 Urine Ascorbic Acid NEGATIVE (NEGATIVE) 04/03/17 19:45 Impressions: Chest X-Ray 04/03/17 17:50 IMPRESSION: No significant interval change. No acute findings. Other findings as noted above Lower Extremity Ultrasound 04/04/17 00:00 IMPRESSION: NORMAL BILATERAL LOWER EXTREMITY ARTERIAL DOPPLER WITH ABIs. Lumbar Spine X-Ray 04/04/17 00:00 IMPRESSION: Degenerative changes as noted above Pelvis X-Ray 04/04/17 00:00 IMPRESSION: No acute fracture or dislocation. No significant degenerative changes in the hip articulations. Intramedullary calcific density at the level of the proximal femoral diaphysis on the right as noted above. Differential possibilities as noted above. If further workup is deemed clinically warranted I would recommend MRI. Other findings as noted above Qualifiers PATEINT BEING DISCHARGED WITH ANY OF THE FOLLOWING DIAGNOSIS?: No Plan Discharge Plan: home. 6d ov.
[2017-04-05 07:23] LABS: HEMATOCRIT 46.3 % (37.9-51.0); HEMOGLOBIN 16.1 g/dL (13.5-17.0); MEAN CORPUSCULAR HEMOGLOBIN 29.2 pg (27.0-33.4); MEAN CORPUSCULAR HGB CONC 34.8 g/dL (32.0-36.0); MEAN CORPUSCULAR VOLUME 84 fl (80-97); PLATELET COUNT 157 10^3/uL (150-450); RED BLOOD COUNT 5.52 10^6/uL (4.35-5.55); RED CELL DISTRIBUTION WIDTH 13.9 % (11.5-14.0); WHITE BLOOD COUNT 6.5 10^3/uL (4.0-10.5)
[2017-04-05 07:43] LABS: ANION GAP 8 (5-19); BLOOD UREA NITROGEN 19 mg/dL (7-20); CALCIUM 9.5 mg/dL (8.4-10.2); CARBON DIOXIDE 25 mmol/L (22-30); CHLORIDE 107 mmol/L (98-107); GLUCOSE 118 mg/dL (75-110); POTASSIUM 4.4 mmol/L (3.6-5.0); SODIUM 139.5 mmol/L (137-145)
[2017-04-05 08:52] VITALS: BP 132/86
--- NOTE | 2017-04-05 09:22 | RADIOLOGY REPORT (SQ) ---
EXAM DESCRIPTION: SKULL 1-3 VIEWS COMPLETED DATE/TIME: 04/04/2017 6:38 pm REASON FOR STUDY: Foreign body eval for MRI COMPARISON: None. NUMBER OF VIEWS: Three views. TECHNIQUE: AP and oblique views of the skull and orbits. LIMITATIONS: None. FINDINGS: ORBITS: No fracture. No foreign body. SINUSES: No mucosal thickening. No air fluid levels. FACIAL BONES: No fracture. OTHER: No other significant finding. IMPRESSION: NEGATIVE STUDY OF THE SKULL AND ORBITS. NO RADIO-OPAQUE FOREIGN BODY. THE PATIENT IS CLEARED FOR MRI SCANNING. TECHNICAL DOCUMENTATION: JOB ID: [id number] [employer]- All Rights Reserved
--- NOTE | 2017-04-05 09:39 | RADIOLOGY REPORT (SQ) ---
EXAM DESCRIPTION: MRI LUMBAR SPINE WITHOUT COMPLETED DATE/TIME: 04/04/2017 7:32 pm REASON FOR STUDY: FU XR, pain COMPARISON: None. TECHNIQUE: Sagittal and Axial imaging includes T1, T2, STIR and gradient echo sequences. Coronal T2/ HASTE imaging. LIMITATIONS: Motion. FINDINGS: VISUALIZED UPPER ABDOMEN: Limited evaluation. No acute or suspicious findings suggested. SEGMENTATION: No transitional anatomy. The lowest well-developed disc space is labeled L5-S1. ALIGNMENT: Anatomic. VERTEBRAE: Mild height loss T12. BONE MARROW: Edema in the anterior leftward margin of T12. DISC SIGNAL: Desiccation L2-3 through L4-5. POSTERIOR ELEMENTS: Intact. HARDWARE: None in the spine. CORD AND CONUS: Normal in size and signal intensity. Conus at the appropriate level. SOFT TISSUES: No aortic aneurysm seen. No bulky retroperitoneal adenopathy or mass. No paraspinal mas s or fluid. L1-L2: No significant spinal stenosis or exit foraminal stenosis. L2-L3: Mild spinal stenosis due to disc bulge and facet arthropathy. L3-L4: Mild -moderate spinal stenosis due to disc bulge and facet arthropathy. L4-L5: Moderate spinal stenosis due to disc bulge and facet arthropathy. Right lateral disc herniati on contacts the exiting right L4 nerve root in the neural foramen. L5-S1: Disc bulge and facet arthropathy. No significant stenosis. LOWER THORACIC: See above. SACRUM: Visualized upper sacrum intact. OTHER: No other significant findings. IMPRESSION: 1. Mild compression fracture T12 with mild edema anteriorly to left of midline. Edema pattern somewh at unusual for recent fracture, and may represent more chronic fracture. Consider kyphoplasty consul tation. 2. Spondylosis and facet arthropathy. Moderate spinal stenosis L4-5. TECHNICAL DOCUMENTATION: JOB ID: [id number]- All Rights Reserved
== END 2017-04-05 09:29 | disposition home or self-care (01) ==
LOC: ER 17:22 → EH 21:04 → 5 04-04 12:34
PROVIDERS: ADMIT Internal Medicine; ATTEND Family Medicine
PROC: 3E0F7GC Introduction of Other Therapeutic Substance into Respiratory Tract, Via Natural or Artificial Opening (ICD-10-PCS; 2017-04-03)
PROC: 3E0234Z Introduction of Serum, Toxoid and Vaccine into Muscle, Percutaneous Approach (ICD-10-PCS; principal; 2017-04-05)
DX: I48.91 Unspecified atrial fibrillation (principal); J43.9 Emphysema, unspecified; E11.42 Type 2 diabetes mellitus with diabetic polyneuropathy; E53.8 Deficiency of other specified B group vitamins; F17.210 Nicotine dependence, cigarettes, uncomplicated; I10 Essential (primary) hypertension; E78.5 Hyperlipidemia, unspecified; M48.061 Spinal stenosis, lumbar region without neurogenic claudication; I37.9 Nonrheumatic pulmonary valve disorder, unspecified; I25.2 Old myocardial infarction; Z79.899 Other long term (current) drug therapy; Z79.84 Long term (current) use of oral hypoglycemic drugs; Z90.49 Acquired absence of other specified parts of digestive tract; Z71.6 Tobacco abuse counseling; Z23 Encounter for immunization
CPT/HCPCS: 93005; 94640 ×4; 99285; 36415 ×3; 82553 ×2; 82962 ×3; 82550 ×2; 85025; 85027 ×2; 85610; 85730; 80048 ×2; 80053; 81001; 84484 ×2; 83036; 80061; 83880; 93925; 72148; 71045; 72110; 72190; 70250; 90686; 93010; 97110; 97163; G0378 ×3; A9270 ×19; J3490 ×2; G8978; G8979; J7620